=== PATIENT | female | born 2005 | race Caucasian/White ===

== ENCOUNTER 2025-06-25 07:13 | Observation (INO) | payer BC ==
--- NOTE | 2025-06-22 12:11 | ELECTROCARDIOGRAPH REPORT ---
[facility] Test Date: 2025-06-22 Test Time: 12:08:26 Pat Name: EDUAR ROBERTO Department: [facility]-PRE-OP Patient ID: [facility]-[id number] Room: Gender: F Policeman: jayden : 2005 Requested By: CAROL ANN BLANCO Order Number: [id number] Reading MD: Dr. GLORIA Melvin Measurements Intervals [place] Rate: 49 P: 57 [place]: 118 QRS: 52 QRSD: 90 T: 58 QT: 414 QTc: 374 Interpretive Statements Sinus bradycardia Borderline short [place] interval Electronically Signed On 06-22-2025 20:55:[address] GLORIA Melvin Please click the below link to view image of tracing.
[2025-06-22 12:19] LABS: LEUKOCYTE ESTERASE ,URINE NEGATIVE (Neg); MEAN PLATELET VOLUME 9.8 FL (7.4-10.4); NITRITES, URINE NEGATIVE (Neg); OCCULT BLOOD,URINE TRACE-INTACT (Neg); PRE OP HEMATOCRIT 39.8 % (35.0-45.0); PRE OP HEMOGLOBIN 13.1 g/dL (12.0-16.0); PRE OP PLATELET COUNT 312 X10'3 (140-440); PRE OP WHITE BLOOD COUNT 5.5 10'3 (4.8-10.8); RED CELL DISTRIBUTION WIDTH 13.8 % (11.5-14.5)
[2025-06-22 12:20] LABS: UA COLLECTION TYPE VOIDED
[2025-06-22 12:27] LABS: MUCUS STRANDS NONE SEEN /LPF (Neg); SQUAMOUS EPITHELIAL CELL,UR FEW /LPF (FEW)
[2025-06-22 12:40] LABS: PRE OP INR 1.0 INR; PRE OP PARTIAL THROMB. TIME 27.0 SECONDS (22-32); PRE OP PROTIME 10.7 SECONDS (9.0-12.0)
[2025-06-22 12:45] LABS: CREATININE 0.67 MG/DL (0.40-0.90); PRE OP ALT 24 U/L (30-65); PRE OP ANION GAP 8 (8-16); PRE OP AST 13 U/L (10-37); PRE OP BILIRUB, TOTAL 0.4 MG/DL (0.0-1.0); PRE OP GLUCOSE 85 MG/DL (70-104); PRE OP POTASSIUM 3.7 MMOL/L (3.4-5.1); PRE OP SODIUM 140 MMOL/L (135-145); TOTAL CARBON DIOXIDE 26.4 MMOL/L (24-32); eGFR > 90 ML/MIN
[2025-06-22 13:16] LABS: HCG SERUM QL NEGATIVE
[2025-06-25] VITALS (29 sets, daily range): BP systolic 101–131; BP diastolic 60–78; PULSE 54–91; RESP 9–26; TEMP 97.4–99.3; O2SAT 97–100
[~2025-06-25] VITALS: Ht 154.9 cm; Wt 63.6 kg
[2025-06-25] MEDS: ceFOXitin 2GM-NS 100mL ADDvant 100 ML IV ONE (06:24)
[2025-06-25] MEDS: INDOCYANINE GREEN 25 MG/10 ML VIAL IV ONE (06:24)
[~2025-06-25 07:13] MED LIST: ALBU8HFA INH; BUPIVAcaine 2.5mg/ml inj 50ml vial (contains preservative) ONE
[2025-06-25] MEDS: ringers solution, lacted 1,000 ML IV SCH ×2 (08:05→09:25)
[2025-06-25] MEDS ORDERED: labetalol 20mg/4ml (5mg/ml) syringe IV PRN (09:25)
[2025-06-25] MEDS ORDERED: morphine 4 MG/ML inj SYRINge IV PRN ×2 (09:25→11:30)
[2025-06-25] MEDS ORDERED: hydrALAZINE 20mg/ml inj. IV PRN (09:25)
[2025-06-25] MEDS ORDERED: midazolam 1 mg/ML 2ml injection ONE (09:34)
[2025-06-25] MEDS ORDERED: fentaNYL /PF 50mcg/ml 5ml ampule ONE (09:34)
[2025-06-25] MEDS ORDERED: dexamethasone sod phosphate 4mg/ml inj. ONE (09:43)
[2025-06-25] MEDS ORDERED: propofol inj 20 ML IV ONE (09:43)
[2025-06-25] MEDS ORDERED: ondansetron/PF 4mg/2ml inj ONE (09:44)
[2025-06-25] MEDS ORDERED: rocuronium 10mg/ml inj IV ONE (09:44)
[2025-06-25] MEDS ORDERED: LIDOcaine 2% (20mg/ml) 5ml vial ONE (09:44)
[2025-06-25] MEDS: BUPIVAcaine 0.25% w/Epi /PF 30ml vial IJ ONE (10:30)
[2025-06-25] MEDS ORDERED: acetaminophen 1,000mg/100ml IV 100 ML IV ONE (10:32)
--- NOTE | 2025-06-25 10:40 | OPERATIVE REPORT ---
Operative Report Providers to CC ~ Date of Procedure: Jun 25, 2025 Pre-Operative Diagnosis: symptomatic cholelithiasis Post-Operative Diagnosis SAME as PRE-Op Procedure Performed yani winters Surgeon: mague Field Technician none Anesthesiologist: Jagruti Burgess Type of Anesthesia: General Findings: distended gb Estimated Blood Loss: min Specimen Removed: gb CAROL ANN BLANCO MD Jun 25, 2025 10:40
[2025-06-25] MEDS ORDERED: glycopyrrolate 0.2mg/ml inj ONE (10:43)
[2025-06-25] MEDS: morphine 4 MG/ML inj SYRINge IV PRN (11:06)
[2025-06-25] MEDS: acetaminophen 1,000mg/100ml IV 100 ML IV PRN (11:06)
[2025-06-25] MEDS: HYDROmorphone inj. 0.5 MG/0.5 ML DISP.SYRIN IV PRN ×2 (11:26→13:06)
[2025-06-25] MEDS: ondansetron/PF 4mg/2ml inj IV PRN (11:26)
[2025-06-25] MEDS: ketorolac trometh 30MG/ML vial 30 MG/ML VIAL IV PRN (11:26)
[2025-06-25] MEDS ORDERED: ondansetron/PF 4mg/2ml inj IV PRN (11:30)
[2025-06-25] MEDS ORDERED: PCA WASTE DOCUMENTATION 1 MG ML MC SCH (11:30)
[2025-06-25] MEDS: potassium CL 20mEq in D5-1/2NS 1,000 ML IV SCH (12:12)
[2025-06-25] MEDS: HYDROcodone/acetaminophen 5mg/325mg tablet PO PRN (13:05)
[2025-06-25] MEDS: ceFOXitin 1 GM/D5W 50mL IVPB 50 ML IV SCH (16:15)
[2025-06-25] MEDS: ketorolac trometh 30MG/ML vial 30 MG/ML VIAL IV SCH (20:00)
[2025-06-26 02:00] VITALS: BP 99/45; PULSE 55; RESP 15; TEMP 99.2; O2SAT 96
[2025-06-26 06:00] VITALS: BP 94/48; PULSE 56; RESP 16; TEMP 98.4; O2SAT 97
[2025-06-26 07:00] VITALS: BP 103/53
--- NOTE | 2025-06-26 07:11 | OPERATIVE REPORT ---
DATE OF SURGERY: 06/25/2025 DICTATING PHYSICIAN: Axel Cox MD PREOPERATIVE DIAGNOSIS: Symptomatic cholelithiasis. POSTOPERATIVE DIAGNOSIS: Symptomatic cholelithiasis. PROCEDURE PERFORMED: Robotic cholecystectomy. SURGEON: Axel Cox MD MODEL MAKER FIBERGLASS: None. ANESTHESIA: General/Dr. Burgess. DRAINS: None. INDICATIONS FOR OPERATION: A 19-year-old female with recurrent abdominal discomfort, found to have symptomatic cholelithiasis. INTRAOPERATIVE FINDINGS: Distended gallbladder. DESCRIPTION OF PROCEDURE: The patient was placed supine on the operating table. After induction of general anesthesia and placement of endotracheal tube, the abdomen was prepped and draped. A subumbilical incision was then made and Mika port placed using open technique and pneumoperitoneum was begun by insufflation of CO2. Additional ports were then placed under laparoscopic vision, one on the left and two on the right. Robot was then brought to the field. Camera port docked. Camera placed, camera targeted. Additional ports were then docked and instruments placed. Abdomen was then explored. Gallbladder fundus was grasped and retracted cephalad. Cystic duct identified, isolated, ligated, clipped and divided the cystic artery. The gallbladder was mobilized off the gallbladder fossa. Once hemostasis was found to be adequate, robotic instruments were removed. Gallbladder was placed in Endobag using the laparoscope. Abdomen was then copiously irrigated with a large amount of antibiotic-containing solution. Once hemostasis was found to be adequate, robotic ports were then removed under laparoscopic vision. Final port and camera was then withdrawn. Pneumoperitoneum was evacuated. Wounds were closed in layers. Skin was closed with subcuticular stitch. Dressing was applied and the patient was transferred to recovery in stable condition after reversing from general anesthesia. It should be noted the gallbladder was in the Endobag when removed. Axel Cox MD TID: [id number] RECEIPT: [id number] DIGNA/JOLENE
[2025-06-26 08:20] VITALS: RESP 16
[2025-06-26 10:00] VITALS: BP 112/63; PULSE 77; RESP 15; TEMP 98.3; O2SAT 100
--- NOTE | 2025-06-26 10:32 | PATHOLOGY REPORT ---
[facility] [address] [place] [address] SURGICAL PATHOLOGY REPORT CaseNumber: [id number] Surgeon:Axel Cox M.D. CLINICAL INFORMATION CLINICAL INFORMATION: Not provided. DIAGNOSIS DIAGNOSIS: GALLBLADDER, TOBOTIC-ASSISTED LAPAROSCOPIC CODY - MILD CHOLECYSTITIS WITH FEATURES OF CHRONICITY AND CHOLELITHIASIS - NO DYSPLASIA OR MALIGNANCY MICROSCOPIC DESCRIPTION MICROSCOPIC DESCRIPTION: Performed. GROSS DESCRIPTION GROSS DESCRIPTION: Received in a container of formalin labeled with the patient's name, number, and identified per the requisition as "gallbladder" is a disrupted gallbladder which measures 5 cm long by 2 cm in diameter. The serosa is smooth, shiny, and purple denton. The surgical bed is unremarkable. Sectioning reveals a small amount of viscous dark green bile and a 1 cm aggregate of yellow-green stones which measure up to 0.2 cm. The mucosa is intact with scattered yellow flecks present. The wall of the gallbladder measures up to 0.4 cm thick. Bed Machine Operator sections of the neck and wall of the gallbladder are submitted as A1.The time at which the specimen was removed was 1028. The time at which the specimen was placed in formalin was 1035. Electronically signed by: Jun Miner M.D. 06/26/2025 9:52:00 AM
[2025-06-26 12:44] VITALS: RESP 16
--- NOTE | 2025-06-26 15:13 | PROGRESS NOTE ---
Progress Note ID Providers to CC ~ Progress Note Progress Note: DOING WELL/DC CAROL ANN BLANCO MD Jun 26, 2025 15:13
== END 2025-06-26 13:06 | disposition home or self-care (01) ==
LOC: PAS 07:13 → EDSTATUS 09:00 → PAS IN 11:31 → SUR 3N 13:40
PROVIDERS: ADMIT Surgery; ATTEND Surgery
DX: K80.12 Calculus of gallbladder with acute and chronic cholecystitis without obstruction (principal); J45.909 Unspecified asthma, uncomplicated; Z79.899 Other long term (current) drug therapy; Z98.890 Other specified postprocedural states
CPT/HCPCS: 36415; 47562; 80053; 81001; 82948; 84703; 85025; 85610; 85730; 86885; 86900; 86901; 93005; 96365; 96366; 96375; 96376; G0378; J0131; J0665; J0694; J1100; J1171; J1885; J2003; J2250; J2270; J2405; J2704; J2710; J3010; J3480; J3490; J7120; A4215; A4618; A6402; A7000